=== PATIENT | female | born 1965 | race Caucasian/White ===

== ENCOUNTER → 2019-05-09 07:53 | Outpatient (CLI) | payer OTHER, SELFPAY | PROVIDERS: PCP Nurse Practitioner; Referring Provider Nurse Practitioner; Visit Provider Nurse Practitioner | DX: R05 Cough (principal) | CPT/HCPCS: 87633; 87804 ==

== ENCOUNTER 2021-04-28 16:07 | Outpatient (CLI) | payer OTHER, SELFPAY ==
--- NOTE | 2021-04-28 16:14 | RAD_ITS ---
STUDY: RIGHT WRIST X-RAY SERIES OF 1622 HOURS ON 04/28/2021 REASON FOR EXAM: 55-year-old female with bilateral wrist pain. TECHNIQUE: 3. view(s) of the wrist were obtained. COMPARISON: Left wrist x-ray series of 04/28/2021 FINDINGS: Normal visualized distal radius and ulna. Normal radiocarpal articulation. Normal distal radioulnar articulation. Normal carpal bones. Normal carpal articulations. No fractures or dislocations. No arthritic or degenerative changes. Normal carpometacarpal articulation of the thumb. Normal second through fifth carpometacarpal articulations. Normal visualized metacarpal bones. The soft tissue structures are unremarkable. RAD/Wrist min 3 Views IMPRESSION: 1. Normal x-ray examination of the right wrist. 2. No fractures or dislocations. 3. No arthritic or degenerative changes. 4. No osseous lytic, sclerotic or mass lesions. Electronically Signed: Cody Peter MD at 19:58 EDT ,
--- NOTE | 2021-04-28 16:14 | RAD_ITS ---
STUDY: LEFT WRIST X-RAY SERIES OF 1622 HOURS ON 04/28/2021 REASON FOR EXAM: 55-year-old female with left wrist pain. TECHNIQUE: 3 view(s) of the wrist were obtained. COMPARISON: Right wrist series of 04/28/2021. FINDINGS: Normal visualized distal radius and ulna. Normal radiocarpal articulation. Normal distal radioulnar articulation. Normal carpal bones. Normal carpal articulations. No fractures or dislocations. No osseous lytic, sclerotic or mass lesions are noted. No significant arthritic or degenerative changes. Normal carpometacarpal articulation of the thumb. Normal second through fifth carpometacarpal articulations. Normal visualized metacarpal bones. The soft tissue structures are unremarkable. RAD/Wrist min 3 Views IMPRESSION: 1. Normal x-ray examination of the wrist. 2. No fractures or dislocations. 3. No osseous lytic, sclerotic or mass lesions. 4. No significant arthritic or degenerative changes. Electronically Signed: Cody Peter MD at 19:54 EDT ,
--- NOTE | 2021-04-28 16:15 | RAD_ITS ---
STUDY: LEFT SHOULDER X-RAY SERIES--4 VIEWS OF 1624 HOURS ON 04/28/2021 REASON FOR EXAM: 55-year-old female with left shoulder pain. TECHNIQUE: view(s) of the shoulder. COMPARISON: None. FINDINGS: Normal glenohumeral articulation. Normal acromioclavicular joint. Normal acromion. No fractures or dislocations. No arthritic or degenerative changes. No calcific tendinitis. Normal humeral head and visualized proximal humerus. The soft tissue structures are unremarkable. Normal visualized pulmonary apex. RAD/Shoulder min 2 Views IMPRESSION: 1. Normal x-ray examination of the left shoulder. 2. No fractures or dislocations. 3. No calcific tendinitis. 4. No significant arthritic or degenerative changes. Electronically Signed: Cody Peter MD at 20:03 EDT ,
== END 2021-04-28 23:59 | disposition home or self-care (01) ==
PROVIDERS: PCP Nurse Practitioner; Referring Provider Nurse Practitioner; Visit Provider Nurse Practitioner
DX: M25.512 Pain in left shoulder (principal); M25.531 Pain in right wrist; M25.532 Pain in left wrist
CPT/HCPCS: 73030; 73110

== ENCOUNTER → 2022-08-17 | Outpatient (CLI) | payer OTHER, SELFPAY ==
--- NOTE | 2022-08-17 16:23 | RAD_ITS ---
EXAM: XR CERVICAL SPINE, 4 OR 5 VIEWS CLINICAL INDICATION: NECK ACHE TECHNIQUE: Frontal, lateral and bilateral oblique views of the cervical spine. COMPARISON: No relevant prior studies available. FINDINGS: VERTEBRAE: Unremarkable. Preserved vertebral body height. No acute fracture. No spondylolisthesis. Preservation of the normal cervical lordosis. No significant facet arthropathy. DISC SPACES: This space narrowing and marginal osteophyte C4-5, C5-6, and C6-7. SOFT TISSUES: Unremarkable. No prevertebral soft tissue widening. LUNG APICES: Clear. RAD/Cerv Spine 4 or 5 Views IMPRESSION: Degenerative disc disease C4-5 through C6-7. Electronically Signed: Amaury Santizo MD at 0:17 EDT ,
== END | disposition home or self-care (01) ==
LOC: MTRAD 16:21
PROVIDERS: PCP Nurse Practitioner Family; Referring Provider Nurse Practitioner Family; Visit Provider Nurse Practitioner Family
DX: M54.2 Cervicalgia (principal)
CPT/HCPCS: 72050

== ENCOUNTER → 2023-04-24 | Outpatient (CLI) | payer OTHER, SELFPAY ==
--- OUTSIDE RECORDS SUMMARY | 2023-04-24 09:30 | XMS RPT_ITS | CCD ---
Author Name Unknown Address [address] [place] [address] Organization [facility] Care Team Providers [facility] Operator Name Role Phone Faiza Hannah Barone Unavailable Jesús Bañuelos Unavailable [phone] Hermes Cruz Unavailable Lang Houser Unavailable Unavailable Slarb, Fely Unavailable Unavailable Unavailable Unavailable AlesiaHannah helms Unavailable Dennis WHARTON , Lokesh Means Unavailable [phone] Tad WHARTON, Dr. Robert Jesus Unavailable Jesús Bañuelos MD Unavailable Hermes Cruz MD Unavailable Aida MACHINE PRECISION ETCHER, Denisse Unavailable Unavailable Slarb MACHINE PRECISION ETCHER, Fely Unavailable Unavailable Mik HERNANDEZ, Lang Unavailable Unavailable Unavailable Unavailable Hannah Kendall Unavailable Anjelica SANTILLAN, Emelyn Unavailable Unavailable Kelly oHwell CNP Unavailable Maik Terrell Unavailable Klely Howell CNP Unavailable AlesiaHannah helms Unavailable Lidya Garnett Unavailable Adriana Cesar MA Unavailable Unavailable Unavailable Primary Care Provider Unavailabl e Allergies Allergy Classification Reported Allergen(s) Allergy Type Date of Onset Reaction(s) Facility (9 sources) Codeine/Codeine Derivatives; Translations: [Codeine/Codein e Derivatives] Allergy to substance (finding) [facility]; [facility] Work Phone: Medications Current Medications Medication Drug Class(es) Dates Sig (Normalized) Sig (Original) amoxicillin 875 mg / clavulanate 125 mg oral tablet (9 sources) Penicillin-class Antibacterial Start: 03-30-2023 End: 04-06-2023 take 1 tablet by mouth twice daily amoxicillin-clavulan ate potassium (AUGMENTIN) 875-125 mg per tablet Indications: Rhinosinusitis Take 1 tablet by mouth two times a day for 7 days. 14 tablet 0 03/30/2023 04/06/2023 Active Completed/Discontinued Medications Medication Drug Class(es) Dates Sig (Normalized) Sig (Original) acetaminophen 325 mg / butalbital 50 mg / caffeine 40 mg oral tablet (9 sources) Barbiturate, Central Nervous System Stimulant, Methylxanthine End: 04-11-2013 take 1 tablet by mouth once as needed FIORICET, 50-325-40MG (Oral Tablet) 1 PRN for 0 days Refills: 0 Ordered: 15-Apr-2012 Vera Thayer LPN End : 11-Apr-2013 Discontinued Comments: This order discontinued per [facility]. Problems Active Problems Problem Classification Problem Date Documented Da te Episodic/Chronic Abdominal pain (20 sources) Generalized abdominal pain; Translations: [Right lower quadrant pain] Resolved: 01-18-2014 12-24-2014 Episodic Past or Other Problems Problem Classification Problem Date Documented Da te Episodic/Chronic Headache; including migraine (20 sources) Headache; including migraine Hemorrhoids (9 sources) Hemorrhoids; Translations: [Hemorrhoids] Resolved: 01-18-2014 11-20-2014 Episodic Miscellaneous mental health disorders (2 sources) Brain fag; Translations: [Brain fag] Resolved: 07-13-2014 07-13-2014 Chronic Nonmalignant breast conditions (2 sources) Breast signs and symptoms; Translations: [Other signs and symptoms in breast] 05-10-2019 Unclassified (9 sources) Abortions/Miscarr iages; Translations: [Abortions/Miscar riages] 04-15-2020 Results Test Name Value Interpretation Reference Range Facil ity Vital Signs Date Time Vital Sign Value Performing Clinician Facility 03-30-2023 16:03-0500 Body temperature 98.01 [degF] Brigette Gallagher APRN.MANAGER ROOFING Work Phone: [facility] 03-30-2023 16:03-0500 Body weight 74.93 kg Brigette Gallagher APRN.MANAGER ROOFING Work Phone: [facility] 03-30-2023 16:03-0500 Diastolic blood pressure 82 mm[Hg] Brigette Gallagher APRN.MANAGER ROOFING Work Phone: [facility] 03-30-2023 16:03-0500 Heart rate 74 /min Brigette Gallagher APRN.MANAGER ROOFING Work Phone: [facility] 03-30-2023 16:03-0500 Respiratory rate 18 /min Brigette Gallagher APRN.MANAGER ROOFING Work Phone: [facility] 03-30-2023 16:03-0500 SaO2% (BldA) [Mass fraction] 98 % Brigette Gallagher APRN.MANAGER ROOFING Work Phone: [facility] 03-30-2023 16:03-0500 Systolic blood pressure 118 mm[Hg] Brigette Gallagher APRN.MANAGER ROOFING Work Phone: [facility] 09-29-2022 15:29-0400 Body height 159.38 cm Adriana Cesar MA [facility]; [facility] Work Phone: 09-29-2022 15:29-0400 Body mass index (BMI) [Ratio] 26.07 kg/m2 Adriana Cesar MA [facility]; [facility] Work Phone: 09-29-2022 15:29-0400 Body surface area Derived from formula 1.69 m2 Adriana Cesar MA [facility]; [facility] Work Phone: 09-29-2022 15:29-0400 Body temperature 96.9 [degF] Adriana Cesar MA [facility]; [facility] Work Phone: 09-29-2022 15:29-0400 Body weight 66.23 kg Adriana Cesar MA [facility]; [facility] Work Phone: 09-29-2022 15:29-0400 Diastolic blood pressure 80 mm[Hg] Adriana Cesar MA [facility]; [facility] Work Phone: Encounters Encounter Date Encounter Type Care Provider Facility Start: 03-30-2023 End: 03-30-2023 ambulatory Facility:[facility] Start: 03-30-2023 End: 03-30-2023 Patient encounter procedure Brigette Gallagher APRN.MANAGER ROOFING Work Phone: [facility] Procedures Date Procedure Procedure Detail Performing Clinician Start: 03-30-2023 STREP A MOLECULAR (POC) [facility] Provider Start: 08-17-2022 End: 08-18-2022 Cerv Spine 4 or 5 Views Procedure Note: See Note; NOTES: [facility] Imaging Services [address] [place] [address] Cerv Spine 4 or 5 Views MR#: [id number] Acct: [id number] Name: WENDY ANDRE MONIQUE Rep #: [id number] : 1965 F 56 From: Amaury Stratton PCP: ESTEFANI Tan Status: REG CLI Study: Cerv Spine 4 or 5 Views Date of Exam: 08/17/22 Exam# [id number] Ordering Dr: Kelly Howell ASSISTANT CONTROLLERYu EXAM: XR CERVICAL SPINE, 4 OR 5 VIEWS CLINICAL INDICATION: NECK ACHE TECHNIQUE: Frontal, lateral and bilateral oblique views of the cervical spine. COMPARISON: No relevant prior studies available. FINDINGS: VERTEBRAE: Unremarkable. Preserved vertebral body height. No acute fracture. No spondylolisthesis. Preservation of the normal cervical lordosis. No significant facet arthropathy. DISC SPACES: This space narrowing and marginal osteophyte C4-5, C5-6, and C6-7. SOFT TISSUES: Unremarkable. No prevertebral soft tissue widening. LUNG APICES: Clear. RAD/Cerv Spine 4 or 5 Views IMPRESSION: Degenerative disc disease C4-5 through C6-7. Electronically Signed: Amaury Santizo MD at 0:17 EDT , CC: ASSISTANT CONTROLLER-[address] [employer] Building Decorator: Signed Kelly Howell CNP Work Phone: Start: 04-28-2021 End: 04-28-2021 Shoulder min 2 Views Comments: See Note; NOTES: [facility] Imaging Services [address] [place] [address] Shoulder min 2 Views MR#: [id number] Acct: [id number] Name: WENDY ANDRE MONIQUE Rep #: [id number] : 1965 F 55 From: Cody Peter MD PCP: ESTEFANI Babcock Status: REG CLI Study: Shoulder min 2 Views Date of Exam: 04/28/21 Exam# [id number] Ordering Dr: Hannah Kendall NP STUDY: LEFT SHOULDER X-RAY SERIES--4 VIEWS OF 1624 HOURS ON 04/28/2021 REASON FOR EXAM: 55-year-old female with left shoulder pain. TECHNIQUE: view(s) of the shoulder. COMPARISON: None. FINDINGS: Normal glenohumeral articulation. Normal acromioclavicular joint. Normal acromion. No fractures or dislocations. No arthritic or degenerative changes. No calcific tendinitis. Normal humeral head and visualized proximal humerus. The soft tissue structures are unremarkable. Normal visualized pulmonary apex. RAD/Shoulder min 2 Views IMPRESSION: 1. Normal x-ray examination of the left shoulder. 2. No fractures or dislocations. 3. No calcific tendinitis. 4. No significant arthritic or degenerative changes. Electronically Signed: Cody Peter MD at 20:03 EDT , CC: ASSISTANT CONTROLLERYu Kendall [employer] Decorator: Signed Hannah Kendall Work Phone: Start: 04-28-2021 End: 04-28-2021 Wrist min 3 Views Comments: See Note; NOTES: [facility] Imaging Services [address] [place] [address] Wrist min 3 Views MR#: [id number] Acct: [id number] Name: WENDY ANDRE Rep #: [id number] : 1965 F 55 From: Cody Peter MD PCP: ESTEFANI Babcock Status: REG CLI Study: Wrist min 3 Views Date of Exam: 04/28/21 Exam# [id number] Ordering Dr: Hannah Kendall NP STUDY: LEFT WRIST X-RAY SERIES OF 1622 HOURS ON 04/28/2021 REASON FOR EXAM: 55-year-old female with left wrist pain. TECHNIQUE: 3 view(s) of the wrist were obtained. COMPARISON: Right wrist series of 04/28/2021. FINDINGS: Normal visualized distal radius and ulna. Normal radiocarpal articulation. Normal distal radioulnar articulation. Normal carpal bones. Normal carpal articulations. No fractures or dislocations. No osseous lytic, sclerotic or mass lesions are noted. No significant arthritic or degenerative changes. Normal carpometacarpal articulation of the thumb. Normal second through fifth carpometacarpal articulations. Normal visualized metacarpal bones. The soft tissue structures are unremarkable. RAD/Wrist min 3 Views IMPRESSION: 1. Normal x-ray examination of the wrist. 2. No fractures or dislocations. 3. No osseous lytic, sclerotic or mass lesions. 4. No significant arthritic or degenerative changes. Electronically Signed: Cody Peter MD at 19:54 EDT , CC: ESTEFANI Kendall [employer] Building Decorator: Signed Hannah Kendall Work Phone: Start: 12-05-2013 End: 12-05-2013 Spmtry w/vc expiratory oliverio w/wo mxml vol vntj [Preliminary Information] Sensor Calibration Date: 10/24/2013; Sensor SN: [id number]; Pressure: 760; Temperature: 21.25; Predicteds Used: Crapo [Pre-Bronchodilator] FVC: 3.94944382342620; FEV (0.5 secs): 1.95758778371488; FEV (1.0 sec): 2.98264458680903; FEV (3.0 secs): 3.58191219806511; FEV (6.0 secs): 3.24708270265800; FEV (1.0 sec) / FVC: 75.7407158954460; FEV (3.0 secs) / FVC: 92.5933106985843; FEV (1.0 sec) / FEV (6.0 secs): 76.4445319738713; FEF (25-75%): 2.14731828493125; FEF (75-85%): 0.844704712137304; PEF: 4.5791254021579; FEF (25%): 4.28584310636320; FEF (75%): 0.83642754643131; FEF (200-1200): 4.16057151431182; EXP TIME: 6.95; Best FVC: 3.62322375818964; Best FEV (1.0 sec): 2.58852375344544; V ext.: 0.0863739226945260; FIVC: 3.87093389216573; FIV (0.5 sec): 0.513738824691108; FEV (0.5 secs) / FIV (0.5 secs): 318.174327532310; FIF (50%): 1.87173323704306; FEF (50%) / FIF (50%): 134.541986746346; MVV: 0; MTV: 0; RR: 0; MVV Time: 0; VC: 0; ERV: 0; JOSÉ: 0; TV: 0; AT: 0; AT%: 0 [Post-Bronchodilator] FVC: 0; FEV (0.5 secs): 0; FEV (1.0 sec): 0; FEV (3.0 secs): 0; FEV (6.0 secs): 0; FEV (1.0 sec) / FVC: 0; FEV (3.0 secs) / FVC: 0; FEV (1.0 sec) / FEV (6.0 secs): 0; FEF (25-75%): 0; FEF (75-85%): 0; PEF: 0; FEF (25%): 0; FEF (75%): 0; FEF (200-1200): 0; EXP TIME: 0; Best FVC: 0; Best FEV (1.0 sec): 0; V ext.: 0; FIVC: 0; FIV (0.5 sec): 0; FEV (0.5 secs) / FIV (0.5 secs): 0; FIF (50%): 0; FEF (50%) / FIF (50%): 0; MVV: 0; MTV: 0; RR: 0; MVV Time: 0; VC: 0; ERV: 0; JOSÉ: 0; TV: 0; AT: 0; AT%: 0 [Predicted Values] FVC: 3.47584862181406; FEV (0.5 secs): 2.04340612245068; FEV (1.0 sec): 2.15162953395966; FEV (3.0 secs): 3.68244764467639; FEV (6.0 secs): 0; FEV (1.0 sec) / FVC: 82.1662923621097; FEV (3.0 secs) / FVC: 95.2587838178928; FEV (1.0 sec) / FEV (6.0 secs): 0; FEF (25-75%): 3.42716903633147; FEF (75-85%): 0; PEF: 5.83980181955793; FEF (25%): 5.76763409309473; FEF (75%): 1.87602985887292; FEF (200-1200): 0; EXP TIME: 0; Best FVC: 3.26337039369856; Best FEV (1.0 sec): 2.01668357216245; V ext.: 0; FIVC: 3.40557916912139; FIV (0.5 sec): 0; FEV (0.5 secs) / FIV (0.5 secs): 0; FIF (50%): 0; FEF (50%) / FIF (50%): 0; MVV: 103.895696144715; MTV: 0; RR: 0; MVV Time: 0; VC: 3.71404622427409; ERV: 0; JOSÉ: 0; TV: 0; AT: 0; AT%: 0 [Spirometry Diagnostic Statements] Date of Test: 12/05/2013 13:07:25; Summary: Normal spirometry. Radha Carrillo Work Phone: Plan of Treatment Date Care Activity Detail Author Start: 02-08-2023 Depression Assessment Depression Assessment [facility] Start: 10-09-2022 Influenza vaccination Influenza Vaccine (#1) [facility] Start: 09-29-2022 Lipid panel LIPID PANEL (37627) [facility] Work Phone: Start: 09-29-2022 Procedure Education Eprescribed prescriptions (G8553) [facility]; [facility] Work Phone: Start: 09-29-2022 Provider Instructions for Treatment Follow up in 2 months [facility]; [facility] Work Phone: Start: 09-29-2022 25 hydroxy includes fractions if performed CALCIFEDIOL (12796) [facility]; [facility] Work Phone: Start: 09-29-2022 Antibody ziggy-montes eb virus nuclear ag ebna EBV Antibody Profile (95549) [facility]; [facility] Work Phone: Start: 09-29-2022 Cyanocobalamin vitamin b-12 VITAMIN B12 AND FOLATES (04199) [facility]; [facility] Work Phone: Start: 09-29-2022 Assay of thyroid stimulating hormone tsh TSH (THYROID STIMULATING HORMONE) (31396) [facility]; [facility] Work Phone: Start: 09-29-2022 Comprehensive metabolic panel METABOLIC PANEL, COMPREHENSIVE (13920) [facility]; [facility] Work Phone: Start: 09-29-2022 Blood count complete auto&auto difrntl wbc CBC, PLATELETS & AUT DIFF (58369) [facility]; [facility] Work Phone: Start: 08-03-2022 Patient Education Neck Pain [facility] Work Phone: Start: 08-03-2022 Procedure Education Eprescribed prescriptions (G8553) [facility]; [facility] Work Phone: Start: 08-03-2022 Provider Instructions for Treatment Follow up - Make appt after diagnostic tests [facility]; [facility] Work Phone: Start: 05-05-2021 Procedure Education Eprescribed prescriptions (G8553) [facility]; [facility] Work Phone: Start: 04-28-2021 Procedure Education Eprescribed prescriptions (G8553) [facility]; [facility] Work Phone: Start: 04-28-2021 Provider Instructions for Treatment Follow up in 1 week virtual [facility]; [facility] Work Phone: Start: 02-19-2021 Iaadiadoo influenza 2019 Novel Coronavirus (COVID-19), MAT (95180) [facility]; [facility] Work Phone: Start: 04-15-2020 Procedure Education Eprescribed prescriptions (G8553) [facility]; [facility] Work Phone: Start: 04-15-2020 Provider Instructions for Treatment [facility]; [facility] Work Phone: Start: 05-10-2019 Procedure Education Eprescribed prescriptions (G8553) [facility]; [facility] Work Phone: Start: 05-10-2019 Provider Instructions for Treatment Reviewed Lab [facility]; [facility] Work Phone: Start: 05-09-2019 Procedure Education Eprescribed prescriptions (G8553) [facility]; [facility] Work Phone: Start: 05-09-2019 Provider Instructions for Treatment Follow up if no improvement or if symptoms worsen [facility]; [facility] Work Phone: Start: 05-08-2019 Virus centrifuge enhncd id imfluor stain ea Influenza A&B Viral Culture (08641) [facility]; [facility] Work Phone: Start: 05-08-2019 Procedure Education Eprescribed prescriptions (G8553) [facility]; [facility] Work Phone: Start: 05-08-2019 Provider Instructions for Treatment Follow up in 1 day for face time [facility]; [facility] Work Phone: Start: 09-30-2017 Shingrix Vaccine (1 of 2) Shingrix Vaccine (1 of 2) [facility] Start: 04-30-2017 Procedure Education Eprescribed prescriptions (G8553) [facility]; [facility] Work Phone: Start: 04-30-2017 Provider Instructions for Treatment [facility]; [facility] Work Phone: Start: 08-27-2015 Procedure Education Eprescribed prescriptions (G8553) [facility]; [facility] Work Phone: Start: 08-27-2015 Provider Instructions for Treatment [facility]; [facility] Work Phone: Start: 08-27-2015 [place]oo streptococcus group a Rapid Strep Test, Office (19986) [facility]; [facility] Work Phone: Start: 08-27-2015 S. pyogenes Ag IA Ql (Unsp spec) Rapid Strep Test, Office (47935) [facility]; [facility] Work Phone: Start: 09-27-2014 Patient Education Urinary Incontinence *: incontinence [facility]; [facility] Work Phone: Start: 09-27-2014 Procedure Education Eprescribed prescriptions (G8553) [facility]; [facility] Work Phone: Start: 07-13-2014 Cul bact xcpt urine blood/stool aerobic isol RUFINA CULTURE-OTHER (38323) [facility]; [facility] Work Phone: Start: 01-18-2014 Procedure Education Eprescribed prescriptions (G8553) [facility]; [facility] Work Phone: Start: 01-18-2014 Provider Instructions for Treatment Follow up in 1 month [facility]; [facility] Work Phone: Start: 12-05-2013 Patient Education [facility]; [facility] Work Phone: Start: 12-05-2013 Procedure Education Eprescribed prescriptions (G8553) [facility]; [facility] Work Phone: Start: 12-05-2013 Sedimentation rate rbc non-automated SED RATE ERYTHROCYTE (10188) [facility]; [facility] Work Phone: Start: 12-05-2013 Antinuclear antibodies eve EVE (ANTINUCLEAR ANTIBODY) (03812) [facility]; [facility] Work Phone: Start: 12-05-2013 Nuclear Ab IF (S) [Titer] EVE (ANTINUCLEAR ANTIBODY) (24719) [facility]; [facility] Work Phone: Start: 12-05-2013 Rheumatoid factor quantitative RHEUMATOID FACTOR-QUANT (01943) [facility]; [facility] Work Phone: Start: 12-05-2013 C-reactive protein C-Reactive Protein (78893) [facility]; [facility] Work Phone: Start: 12-05-2013 CRP [Mass/Vol] C-Reactive Protein (02622) [facility]; [facility] Work Phone: Start: 12-05-2013 Creatine kinase total Creatine Kinase Total (12088) [facility]; [facility] Work Phone: Start: 12-05-2013 End: 12-05-2013 Spmtry w/vc expiratory oliverio w/wo mxml vol vntj Spirometry (36170) [facility]; [facility] Work Phone: Payers Date Payer Category Payer Policy ID Unknown Social History Date Type Detail Facility Start: 01-16-2020 End: 03-30-2023 Alcohol Use Alcohol Use [facility]; [facility] Work Phone: Progress note 03-30-2023 Note Date & Type Note Facility 03-30-2023 Note HNO ID: [id number] Author: BRIGETTE GALLAGHER APRN.MANAGER ROOFING Service: ? Author Type: Nurse Practitioner Type: Progress Notes Filed: 03/30/2023 16:59 Note Text: CC: Patient presents with: Sore Throat: Sore throat x 2 weeks but worse today and cough HPI: eWndy Andre is a 57 year old female who presents to the office with complaint of head congestion, cough, nonproductive, and sore throat for 2 weeks. Symptoms are worsening Associated symptoms includes sore throat and nasal congestion. Denies fever, nausea, vomiting , and diarrhea. Treatments tried include nothing so far. with no relief of symptoms. Sick contacts: unknown. History of asthma, frequent episodes of bronchitis, chronic bronchitis, bronchiectasis or COPD: No Smoker: No Seasonal/environmental allergies: No The ROS is otherwise negative. The patient's pmh, medications, allergies, and past visits are reviewed. PHYSICAL EXAM: BP 118/82 Pulse 74 Temp 36.7 ?C (98 ?F) (Tympanic) Resp 18 Wt 74.9 kg (165 lb 3.2 oz) SpO2 98% General appearance: alert, cooperative, pleasant, in no acute distress Head: Normocephalic Eyes: EOM's intact, conjunctiva pink and moist, no icterus, sclera white, non-injected Ears: Right ear: External ear/canal- Normal, TM - clear with good landmarks. Left ear: External ear/canal- Normal, TM - clear with good landmarks Oropharynx:moderate erythema, without exudates present Heart: Negative. RRR without obvious murmur, gallop, or rubs. No ectopy. Lungs: clear to auscultation, without rales or wheeze, good air exchange History reviewed. No pertinent past medical history. No past surgical history on file. ALLERGIES Codeine MEDICATIONS amoxicillin-clavulanate potassium (AUGMENTIN) 875-125 mg per tablet Take 1 tablet by mouth two times a day for 7 days. fluticasone (FLONASE) 50 mcg/actuation nasal spray Use 2 Sprays in each nostril once daily. Rinse mouth after use. (Patient not taking: Reported on 03/30/2023) predniSONE 10 mg tablet TAKE BY MOUTH (4) TABS FOR (3) DAYS THEN (3) TABS FOR (3) DAYS THEN (2) TABS FOR (3) DAYS THEN (1) TAB FOR (3) DAYS (Patient not taking: Reported on 10/30/2018 ) triamcinolone acetonide 0.1 % cream Apply 1 application to affected area twice daily. (Patient not taking: Reported on 10/30/2018 ) No family history on file. Social History Tobacco Use Smoking status: Never Smokeless tobacco: Never ASSESSMENT/PLAN: 1. Sore throat - ICD9: 462, ICD10: J02.9 (primary diagnosis) 2. Rhinosinusitis - ICD9: 473.9, ICD10: J32.9 - AMOXICILLIN 875 MG-POTASSIUM CLAVULANATE 125 MG TABLET Prescription instructions reviewed with patient as applicable. Potential red flag symptoms discussed with the patient. Reviewed appropriate action plan to take if red flag symptoms occur. Patient agreeable to treatment plan. Brigette Gallagher APRN.[facility] History of Present illness Narrative 03-30-2023 Brigette Gallagher APRN.[facility] - 03/30/2023 4:23 PM EST Note Date & Type Note Facility 03-30-2023 History of Presen t illness Narrative CC: Patient presents with: Sore Throat: Sore throat x 2 weeks but worse today and cough HPI: Wendy Andre is a 57 year old female who presents to the office with complaint of head congestion, cough, nonproductive, and sore throat for 2 weeks. Symptoms are worsening Associated symptoms includes sore throat and nasal congestion. Denies fever, nausea, vomiting , and diarrhea. Treatments tried include nothing so far. with no relief of symptoms. Sick contacts: unknown. History of asthma, frequent episodes of bronchitis, chronic bronchitis, bronchiectasis or COPD: No Smoker: No Seasonal/environmental allergies: No The ROS is otherwise negative. The patient's pmh, medications, allergies, and past visits are reviewed. PHYSICAL EXAM: BP 118/82 Pulse 74 Temp 36.7 C (98 F) (Tympanic) Resp 18 Wt 74.9 kg (165 lb 3.2 oz) SpO2 98% General appearance: alert, cooperative, pleasant, in no acute distress Head: Normocephalic Eyes: EOM's intact, conjunctiva pink and moist, no icterus, sclera white, non-injected Ears: Right ear: External ear/canal- Normal, TM - clear with good landmarks. Left ear: External ear/canal- Normal, TM - clear with good landmarks Oropharynx:moderate erythema, without exudates present Heart: Negative. RRR without obvious murmur, gallop, or rubs. No ectopy. Lungs: clear to auscultation, without rales or wheeze, good air exchange History reviewed. No pertinent past medical history. No past surgical history on file. ALLERGIES Codeine MEDICATIONS amoxicillin-clavulanate potassium (AUGMENTIN) 875-125 mg per tablet Take 1 tablet by mouth two times a day for 7 days. fluticasone (FLONASE) 50 mcg/actuation nasal spray Use 2 Sprays in each nostril once daily. Rinse mouth after use. (Patient not taking: Reported on 03/30/2023) predniSONE 10 mg tablet TAKE BY MOUTH (4) TABS FOR (3) DAYS THEN (3) TABS FOR (3) DAYS THEN (2) TABS FOR (3) DAYS THEN (1) TAB FOR (3) DAYS (Patient not taking: Reported on 10/30/2018 ) triamcinolone acetonide 0.1 % cream Apply 1 application to affected area twice daily. (Patient not taking: Reported on 10/30/2018 ) No family history on file. Social History Tobacco Use Smoking status: Never Smokeless tobacco: Never ASSESSMENT/PLAN: 1. Sore throat - ICD9: 462, ICD10: J02.9 (primary diagnosis) 2. Rhinosinusitis - ICD9: 473.9, ICD10: J32.9 - AMOXICILLIN 875 MG-POTASSIUM CLAVULANATE 125 MG TABLET Prescription instructions reviewed with patient as applicable. Potential red flag symptoms discussed with the patient. Reviewed appropriate action plan to take if red flag symptoms occur. Patient agreeable to treatment plan. Brigette Gallagher APRN.MANAGER ROOFING documented in this encounter [facility] Evaluation note Note Date & Type Note Facility documented in this encounter [facility] Instructions Note Date & Type Note Facility [facility] Work Phone: Instructions Note Date & Type Note Facility [facility] Work Phone: Instructions Note Date & Type Note Facility [facility] Work Phone: Instructions Note Date & Type Note Facility [facility] Work Phone: Instructions Note Date & Type Note Facility [facility] Work Phone: Instructions Note Date & Type Note Facility [facility] Work Phone: Instructions Note Date & Type Note Facility [facility] Work Phone: Family History No Family History Records FoundUnknown Family Member Name Dates Details Father Comments:HTN, cardiovascular DZ,-- cad - high chol dementia Status:Active Maternal Grandfather Comments:cancer Status:Active Mother Comments:htn - anxiety chol - recurrent uti , arhtritis Status:Active Sister 1 Comments:healthy Status:Active Unknown Family Member Name Dates Details Father Comments:HTN, cardiovascular DZ,-- cad - high chol dementia Status:Active Maternal Grandfather Comments:cancer Status:Active Mother Comments:htn - anxiety chol - recurrent uti , arhtritis Status:Active Sister 1 Comments:healthy Status:Active Unknown Family Member Name Dates Details Father Comments:HTN, cardiovascular DZ,-- cad - high chol dementia Status:Active Maternal Grandfather Comments:cancer Status:Active Mother Comments:htn - anxiety chol - recurrent uti , arhtritis Status:Active Sister 1 Comments:healthy Status:Active Unknown Family Member Name Dates Details Father Comments:HTN, cardiovascular DZ,-- cad - high chol dementia Status:Active Maternal Grandfather Comments:cancer Status:Active Mother Comments:htn - anxiety chol - recurrent uti , arhtritis Status:Active Sister 1 Comments:healthy Status:Active Unknown Family Member Name Dates Details Father Comments:HTN, cardiovascular DZ,-- cad - high chol dementia Status:Active Maternal Grandfather Comments:cancer Status:Active Mother Comments:htn - anxiety chol - recurrent uti , arhtritis Status:Active Sister 1 Comments:healthy Status:Active Unknown Family Member Name Dates Details Father Comments:HTN, cardiovascular DZ,-- cad - high chol dementia Status:Active Maternal Grandfather Comments:cancer Status:Active Mother Comments:htn - anxiety chol - recurrent uti , arhtritis Status:Active Sister 1 Comments:healthy Status:Active Unknown Family Member Name Dates Details Father Comments:HTN, cardiovascular DZ,-- cad - high chol dementia Status:Active Maternal Grandfather Comments:cancer Status:Active Mother Comments:htn - anxiety chol - recurrent uti , arhtritis Status:Active Sister 1 Comments:healthy Status:Active Unknown Family Member Name Dates Details Father Comments:HTN, cardiovascular DZ,-- cad - high chol dementia Status:Active Maternal Grandfather Comments:cancer Status:Active Mother Comments:htn - anxiety chol - recurrent uti , arhtritis Status:Active Sister 1 Comments:healthy Status:Active Unknown Family Member Name Dates Details Father Comments:HTN, cardiovascular DZ,-- cad - high chol dementia Status:Active Maternal Grandfather Comments:cancer Status:Active Mother Comments:htn - anxiety chol - recurrent uti , arhtritis Status:Active Sister 1 Comments:healthy Status:Active Instructions Name Dates Details Patient Instructions Indication:Nonsmoker Start:15-Apr-2020 Instruction Type:Provider Instructions for Treatment How to Access Health Informa tion Online using Patient Portal and [employer] Apps Indication:Nonsmoker Start:15-Apr-2020 Instruction Type:Patient Education How to access health informa tion online Indication:Nonsmoker Start:10-May-2019 Instruction Type:Patient Education How to access health informa tion online - Detail Indication:Nonsmoker Start:10-May-2019 Instruction Type:Patient Education Patient Instructions Indication:Nonsmoker Start:10-May-2019 Instruction Type:Provider Instructions for Treatment How to access health informa tion online Indication:BMI 28.0-28.9,adult Start:09-May-2019 Instruction Type:Patient Education How to access health informa tion online - Detail Indication:BMI 28.0-28.9,adult Start:09-May-2019 Instruction Type:Patient Education Patient Instructions Indication:Nonsmoker Start:09-May-2019 Instruction Type:Provider Instructions for Treatment How to access health informa tion online Indication:Cough Start:08-May-2019 Instruction Type:Patient Education How to access health informa tion online - Detail Indication:Cough Start:08-May-2019 Instruction Type:Patient Education Patient Instructions Indication:Cough Start:08-May-2019 Instruction Type:Provider Instructions for Treatment How to access health informa tion online Indication:Wisdom eye, right Start:30-Apr-2017 Instruction Type:Patient Education How to access health informa tion online - Detail Indication:Wisdom eye, right Start:30-Apr-2017 Instruction Type:Patient Education Patient Instructions Indication:Wisdom eye, right Start:30-Apr-2017 Instruction Type:Provider Instructions for Treatment How to access health informa tion online Indication:Sore throat Start:27-Aug-2015 Instruction Type:Patient Education How to access health informa tion online - Detail Indication:Sore throat Start:27-Aug-2015 Instruction Type:Patient Education Patient Instructions Indication:Sore throat Start:27-Aug-2015 Instruction Type:Provider Instructions for Treatment How to access health informa tion online Indication:Urinary incontinence Start:27-Sep-2014 Instruction Type:Patient Education How to access health informa tion online - Detail Indication:Urinary incontinence Start:27-Sep-2014 Instruction Type:Patient Education Patient Instructions Indication:Urinary incontinence Start:27-Sep-2014 Instruction Type:Provider Instructions for Treatment How to access health informa tion online Indication:Other chest pain Start:02-Jan-2014 Instruction Type:Patient Education How to access health informa tion online - Detail Indication:Other chest pain Start:02-Jan-2014 Instruction Type:Patient Education Patient Instructions Indication:Other chest pain Start:02-Jan-2014 Instruction Type:Provider Instructions for Treatment Patient Instructions Indication:Abnormal TSH Start:05-Dec-2013 Instruction Type:Provider Instructions for Treatment Patient Instructions Indication:Nasal congestion Start:08-May-2013 Instruction Type:Provider Instructions for Treatment Patient Instructions Indication:Irritability and anger Start:11-Apr-2013 Instruction Type:Provider Instructions for Treatment Patient Instructions Indication:Fatigue Start:25-Oct-2012 Instruction Type:Provider Instructions for Treatment Patient Instructions Indication:Abdominal pain Start:02-Aug-2012 Instruction Type:Provider Instructions for Treatment Patient Instructions Indication:Fatigue Start:15-Apr-2012 Instruction Type:Provider Instructions for Treatment Name Dates Details Patient Instructions Indication:Nonsmoker Start:15-Apr-2020 Instruction Type:Provider Instructions for Treatment How to Access Health Informa tion Online using Patient Portal and [employer]rd [employer] Apps Indication:Nonsmoker Start:15-Apr-2020 Instruction Type:Patient Education How to access health informa tion online Indication:Nonsmoker Start:10-May-2019 Instruction Type:Patient Education How to access health informa tion online - Detail Indication:Nonsmoker Start:10-May-2019 Instruction Type:Patient Education Patient Instructions Indication:Nonsmoker Start:10-May-2019 Instruction Type:Provider Instructions for Treatment How to access health informa tion online Indication:BMI 28.0-28.9,adult Start:09-May-2019 Instruction Type:Patient Education How to access health informa tion online - Detail Indication:BMI 28.0-28.9,adult Start:09-May-2019 Instruction Type:Patient Education Patient Instructions Indication:Nonsmoker Start:09-May-2019 Instruction Type:Provider Instructions for Treatment How to access health informa tion online Indication:Cough Start:08-May-2019 Instruction Type:Patient Education How to access health informa tion online - Detail Indication:Cough Start:08-May-2019 Instruction Type:Patient Education Patient Instructions Indication:Cough Start:08-May-2019 Instruction Type:Provider Instructions for Treatment How to access health informa tion online Indication:Wisdom eye, right Start:30-Apr-2017 Instruction Type:Patient Education How to access health informa tion online - Detail Indication:Wisdom eye, right Start:30-Apr-2017 Instruction Type:Patient Education Patient Instructions Indication:Wisdom eye, right Start:30-Apr-2017 Instruction Type:Provider Instructions for Treatment How to access health informa tion online Indication:Sore throat Start:27-Aug-2015 Instruction Type:Patient Education How to access health informa tion online - Detail Indication:Sore throat Start:27-Aug-2015 Instruction Type:Patient Education Patient Instructions Indication:Sore throat Start:27-Aug-2015 Instruction Type:Provider Instructions for Treatment How to access health informa tion online Indication:Urinary incontinence Start:27-Sep-2014 Instruction Type:Patient Education How to access health informa tion online - Detail Indication:Urinary incontinence Start:27-Sep-2014 Instruction Type:Patient Education Patient Instructions Indication:Urinary incontinence Start:27-Sep-2014 Instruction Type:Provider Instructions for Treatment How to access health informa tion online Indication:Other chest pain Start:02-Jan-2014 Instruction Type:Patient Education How to access health informa tion online - Detail Indication:Other chest pain Start:02-Jan-2014 Instruction Type:Patient Education Patient Instructions Indication:Other chest pain Start:02-Jan-2014 Instruction Type:Provider Instructions for Treatment Patient Instructions Indication:Abnormal TSH Start:05-Dec-2013 Instruction Type:Provider Instructions for Treatment Patient Instructions Indication:Nasal congestion Start:08-May-2013 Instruction Type:Provider Instructions for Treatment Patient Instructions Indication:Irritability and anger Start:11-Apr-2013 Instruction Type:Provider Instructions for Treatment Patient Instructions Indication:Fatigue Start:25-Oct-2012 Instruction Type:Provider Instructions for Treatment Patient Instructions Indication:Abdominal pain Start:02-Aug-2012 Instruction Type:Provider Instructions for Treatment Patient Instructions Indication:Fatigue Start:15-Apr-2012 Instruction Type:Provider Instructions for Treatment Summary Purpose Advance Directives No Advanced Directives Records Found Additional Source Comments Source Comments (unrecognize d section and content) In the event this informatio n is protected by the Federal Confidentiality of Alcohol and Drug Abuse Patient Records regulations: The Federal rules restrict any use of the information to criminally investigate or prosecute any alcohol or drug abuse patient.[facility] Reason for Visit (unrecogniz ed section and content) INFORMATION SOURCE (unrecogn ized section and content) FOR RECORDS PERTAINING TO PATIENTS WHO ARE OR HAVE BEEN ENROLLED IN A CHEMICAL DEPENDENCY/SUBSTANCEABUSE PROGRAM, SOME INFORMATION MAY BE OMITTED. This clinical summary was aggregated from multiple sources. Caution should be exercised in using it in the provision of clinical care. This summary normalizes information from multiple sources, and as a consequence, information in this document may materially change the coding, format and clinical context of patient data. In addition, data may be omitted in some cases. CLINICAL DECISIONS SHOULD BE BASED ON THE PRIMARY CLINICAL RECORDS. [facility] [employer] [facility]. provides no warranty or guarantee of the accuracy or completeness of information in this document.
[2023-04-24 10:50] LABS: ALB/GLOB Ratio 1.1 RATIO (0.9-2.4); AST(SGOT) 17 U/L (15-37); Alanine Aminotransfer ALT/SGPT 18 U/L (13-56); Albumin, Serum 3.7 g/dL (3.2-5.0); Alkaline Phosphatase 72 U/L (45-117); Anion Gap 2 (5-15); BUN 11 mg/dL (7-18); BUN/Creat Ratio 15.5 RATIO (10-20); CRP < 2.90 mg/L (0.0-3.0); Calcium,Total 9.1 mg/dL (8.5-10.1); Chloride 110 mmol/L (98-107); Cholesterol 221 mg/dL (200); Creatinine, Serum 0.71 mg/dL (0.55-1.02); EST Glomerular Filtration Rate 91 mL/min (>60); Est Glom Filt Rate - Afr Amer 110 mL/min (>60); Globulin 3.5 g/dL (2.2-4.2); Glucose 90 mg/dL (74-106); High Density Lipoprotein 74 mg/dL; Protein, Total 7.2 g/dL (6.4-8.2); Sodium Level 140 mmol/L (136-145); Triglycerides 68 mg/dL; Very Low Density Lipoprotein 14 mg/dL (5-40)
[2023-04-26 08:39] LABS: Vitamin D,25 Hydroxy 24.4 ng/mL
== END | disposition home or self-care (01) ==
LOC: LAB 09:20
PROVIDERS: PCP Nurse Practitioner Family; Referring Provider Nurse Practitioner Family; Visit Provider Nurse Practitioner Family
DX: R53.83 Other fatigue (principal); E78.00 Pure hypercholesterolemia, unspecified
CPT/HCPCS: 36415; 80053; 80061; 82306; 84403; 86140

== ENCOUNTER 2024-01-05 10:20 | Outpatient (CLI) | payer OTHER, SELFPAY ==
--- NOTE | 2024-01-05 10:22 | RAD_ITS ---
EXAM: XR CHEST, 2 VIEWS CLINICAL INDICATION: chest pain -- STAT TECHNIQUE: Frontal and lateral views of the chest. COMPARISON: XR Chest dated 11/22/2013 FINDINGS: LUNGS AND PLEURAL SPACES: Normal. No consolidation or edema. No pneumothorax. No effusion. HEART: Normal heart size. MEDIASTINUM: No mediastinal or hilar mass. BONES/JOINTS: No acute abnormality. RAD/Chest PA and Lateral IMPRESSION: No acute cardiopulmonary abnormality. No interval change. Electronically Signed: Mauri Ahumada MD at 11:33 EST ,
[2024-01-05 11:46] LABS: Absolute Lymphocyte Count 1.76 X10^3/uL (0.83-4.51); Absolute Neutrophil Count 2.9 X10^3/uL (2.0-7.7); Basophil# 0.04 X10^3/uL; Basophil% 0.8 % (0-1); Eosinophil# 0.14 X10^3/uL; Eosinophils% 2.6 % (0-5); Hematocrit 41.7 % (37-47); Hemoglobin 13.3 g/dL (12.0-15.0); Lymphocyte # 1.76 X10^3/ul (0.83-4.51); Lymphocyte % 33.2 % (19-41); Mean Corp Hgb Conc 31.9 g/dL (32-36); Mean Corpuscular Hgb 30.7 pg (27.0-32.0); Mean Corpuscular Volume 96.3 fL (81-99); Mean Platelet Vol. 9.3 fl (6.2-12.0); Monocyte# 0.44 X10^3/uL; Monocyte% 8.3 % (0-10); NRBC Flagged by Analyzer 0 % (0-5); Neutrophil # 2.91 X10^3/uL (2.7-7.7); Neutrophil % 54.9 % (47-70); Platelet Count 296 K/mm3 (150-450); RBC Distribution Width CV 12.7 % (11.6-14.6); RBC Distribution Width SD 45.5 fl (35.1-43.9); Red Blood Count 4.33 M/mm3 (4.2-5.4); White Blood Count 5.3 K/mm3 (4.4-11.0)
[2024-01-05 11:49] LABS: Color, Urine Yellow (Yellow); Glucose, Dipstick Normal (Normal); Ketone-Dipstick Negative (Negative); Leukocyte Esterase-Dipstick 100 /ul (Negative); Nitrite-Dipstick Negative (Negative); Occult Blood-Urine Negative /ul (Negative); Protein-Dipstick Negative (Negative); Urine Bilirubin Dipstick Negative (Negative); Urine Clarity Clear (Clear); Urine Urobilinogen Normal (Normal)
[2024-01-05 12:10] LABS: Vitamin B12 576 pg/mL (211-911); Vitamin D,25 Hydroxy 16.6 ng/mL
[2024-01-05 12:26] LABS: ALB/GLOB Ratio 1.1 RATIO (0.9-2.4); AST(SGOT) 16 U/L (15-37); Alanine Aminotransfer ALT/SGPT 20 U/L (13-56); Albumin, Serum 3.9 g/dL (3.2-5.0); Alkaline Phosphatase 80 U/L (45-117); Anion Gap 5 (5-15); BUN 14 mg/dL (7-18); Calcium,Total 9.2 mg/dL (8.5-10.1); Chloride 105 mmol/L (98-107); Cholesterol 230 mg/dL (200); EST Glomerular Filtration Rate 92 mL/min (>60); Est Glom Filt Rate - Afr Amer 111 mL/min (>60); Globulin 3.5 g/dL (2.2-4.2); Glucose 96 mg/dL (74-106); High Density Lipoprotein 82 mg/dL; Potassium 3.8 mmol/L (3.5-5.1); Protein, Total 7.4 g/dL (6.4-8.2); Sodium Level 139 mmol/L (136-145); Triglycerides 83 mg/dL; Troponin-I HS 7 pg/mL (3.0-54.0); Very Low Density Lipoprotein 17 mg/dL (5-40)
== END 2024-01-05 23:59 | disposition home or self-care (01) ==
LOC: MTLAB 10:22
PROVIDERS: PCP Nurse Practitioner Family; Referring Provider Nurse Practitioner Family; Visit Provider Nurse Practitioner Family
DX: Z02.0 Encounter for examination for admission to educational institution (principal); R07.9 Chest pain, unspecified; E78.00 Pure hypercholesterolemia, unspecified; E55.9 Vitamin D deficiency, unspecified; D64.9 Anemia, unspecified
CPT/HCPCS: 36415; 71046; 80053; 80061; 81002; 82306; 82607; 82746; 84443; 84484; 85025

== ENCOUNTER → 2024-08-15 | Outpatient (CLI) | payer OTHER, SELFPAY ==
--- NOTE | 2024-08-15 13:02 | ECHOD_ITS ---
Reason For Study Reason For Study: DYSPNEA Procedure This was a 2D Doppler, Color Flow transthoracic echocardiogram. Exam performed in department. Left Ventricle Normal LV size. The left ventricular ejection fraction is 60 %. Stage 1 diastolic dysfunction. No regional wall motion abnormalities noted. Right Ventricle Normal RV size. Normal systolic function. Atria Normal left atrium. Normal right atrium. Mitral Valve Normal mitral valve. Tricuspid Valve Normal tricuspid valve. Mild tricuspid valve insufficiency. Pulmonary artery systolic pressure is 26 mmHg. Aortic Valve Normal aortic valve. Trisinus/trileaflet aortic valve. Pulmonic Valve Normal pulmonic valve. Great Vessels Normal aortic root. The pulmonary artery is normal size. Inferior vena cava collapse with respiration. Pericardium/Pleural No pericardial effusion. MMode/2D Measurements & Calculations LVIDd: 4.5 cm IVSd: 0.99 cm LVOT diam: 2.0 cm LVIDs: 2.2 cm LVPWd: 0.83 cm LVOT area: 3.1 cm2 RVDd: 3.1 cm FS: 52.2 % asc Aorta Diam: 2.6 cm LAV(MOD-bp): 40.3 ml LVAd ap4: 20.3 cm2 LAV(MOD-bp) Indexed: 22.1 ml/m2 LVLd ap4: 6.6 cm LAV(MOD-sp2): 45.6 ml EDV(MOD-sp4): 52.2 ml LAV(MOD-sp4): 33.5 ml EDV(sp4-el): 53.3 ml LVAs ap4: 11.0 cm2 LVLs ap4: 5.3 cm ESV(MOD-sp4): 19.4 ml ESV(sp4-el): 19.4 ml EF(MOD-sp4): 62.8 % EF(sp4-el): 63.6 % LVAd ap2: 22.2 cm2 SV(MOD-sp4): 32.8 ml SV(MOD-sp2): 39.4 ml LVLd ap2: 7.1 cm SI(MOD-sp4): 17.9 ml/m2 SI(MOD-sp2): 21.6 ml/m2 EDV(MOD-sp2): 57.0 ml EDV(sp2-el): 58.6 ml LVAs ap2: 10.8 cm2 LVLs ap2: 5.7 cm ESV(MOD-sp2): 17.6 ml ESV(sp2-el): 17.3 ml EF(MOD-sp2): 69.1 % SV(sp4-el): 33.9 ml Ao sinus diam: 2.[address] Junction: 2.4 cm LA dimension(2D): 3.6 cm LA A4 area: 14.5 cm2 RA A4 area: 11.9 cm2 TAPSE: 2.1 cm Time Measurements MV dec time: 0.19 sec Doppler Measurements & Calculations MV E max samuel: 79.9 cm/sec Lat Peak E' Samuel: 13.2 cm/sec Med Peak E' Samuel: 12.1 cm/sec MV A max samuel: 84.5 cm/sec E/E' lat: 6.0 E/E' med: 6.6 MV E/A: 0.95 MV dec slope: 431.0 cm/sec2 Ao V2 max: 135.9 cm/sec LV V1 max: 120.6 cm/sec Ao max P.4 mmHg LV V1 max P.8 mmHg Ao V2 mean: 89.2 cm/sec LV V1 mean P.1 mmHg Ao mean P.7 mmHg LV V1 mean: 81.8 cm/sec Ao V2 VTI: 28.0 cm LV V1 VTI: 26.9 cm AV (velocity ratio): 0.96 SHANNAN(I,D): 2.9 cm2 SHANNAN(V,D): 2.7 cm2 SV(LVOT): 82.3 ml PA V2 max: 95.7 cm/sec TR max samuel: 239.9 cm/sec TR max P.0 mmHg ECHO/Echo Complete Interpretation Summary Normal LV size. The left ventricular ejection fraction is 60 %. Stage 1 diastolic dysfunction. Structurally normal valves. Ordering Physician: Dante^Kelly^^^CLINICAL DIETETIC TECHNICIAN-C Referring Physician: Kelly Howell Performed By: Erlinda Eid RDCS
== END | disposition home or self-care (01) ==
PROVIDERS: PCP Nurse Practitioner Family; Referring Provider Nurse Practitioner Family; Visit Provider Nurse Practitioner Family
DX: R06.02 Shortness of breath (principal)
CPT/HCPCS: 93306